=== PATIENT | male | born 1975 | race Two or more races ===

== ENCOUNTER 2017-04-03 22:17 | Emergency (ER) | payer SELFPAY ==
[~2017-04-03] VITALS: Ht 170.2 cm; Wt 70.3 kg
[~2017-04-03 22:17] MED LIST: AUGMENTIN 500-1 EACH PO; NORVIR100 MG PO; PREZISTA600 MG PO; TRUVADA1 TAB PO; VICODIN 5-5001 EACH PO
[2017-04-03] MEDS ORDERED: NKM (22:29)
[2017-04-03 22:30] VITALS: BP 139/85
[2017-04-03] MEDS ORDERED: Morphine Sulfate 4mg/ml Inj IVP ONE (23:15)
[2017-04-03 23:42] LABS: APPEARANCE,URINE CLEAR; KETONES,URINE NEGATIVE (NEGATIVE); LEUKOCYTE ESTERASE ,URINE NEGATIVE (NEGATIVE); NITRITE,URINE NEGATIVE (NEGATIVE); PH,URINE 7 (4.5-8.0); PROTEIN,URINE NEGATIVE (NEGATIVE); UROBILINOGEN,URINE NORMAL MG/DL (0.0-1.0)
[2017-04-03 23:45] LABS: BASOPHILS % (AUTO) 0.5 % (0.0-2.0); EOSINOPHILS % (AUTO) 0.6 % (0.0-3.0); MEAN CORPUSCULAR HEMOGLOBIN 33.9 PG (27.0-31.0); MEAN CORPUSCULAR HGB CONC 36.8 G/DL (32.0-36.0); MEAN CORPUSCULAR VOLUME 92 FL (80-99); MEAN PLATELET VOLUME 7.4 FL (6.5-10.1); MONOCYTES % (AUTO) 8.5 % (1.0-10.0); NEUTROPHILS % (AUTO) 65.3 % (45.0-75.0); PLATELET COUNT 173 K/UL (150-450); RED BLOOD COUNT 5.16 M/UL (4.70-6.10); RED CELL DISTRIBUTION WIDTH 10.8 % (11.6-14.8); WHITE BLOOD COUNT 9.2 K/UL (4.8-10.8)
--- NOTE | 2017-04-03 23:55 | Emergency Room Report ---
History of Present Illness General Chief Complaint: Abdominal Pain Source: Patient Present Illness HPI This is a 41-year-old male with a history of HIV. He is not taking any medication. He presents with chief complaint of dental pain is been ongoing for about a month. Seen a dentist and placed on antibiotics. Was told that nothing could be done since she is not taking his HIV medication. His pain is localized to the right upper wisdom tooth. No fever chills but no nausea no vomiting. His second complaint is abdominal pain. His been ongoing for last 2 days. Decreased appetite. Has nausea vomiting and diarrhea. Pain is 8/10. Allergies: Coded Allergies: ACETAMINOPHEN (Verified Allergy, Unknown, 04/03/17) HYDROMORPHONE HCL (Verified Allergy, Unknown, 04/03/17) Patient History Past Medical History: see triage record, old chart reviewed, HIV Past Surgical History: other Pertinent Family History: none Social History: Reports: drug use, Denies: smoking Immunizations: other Reviewed Nursing Documentation: PMH: Agreed, PSxH: Agreed Review of Systems Eye: Denies: eye pain, blurred vision ENT: Denies: ear pain, nose congestion, throat swelling Respiratory: Denies: cough, shortness of breath Cardiovascular: Denies: chest pain, palpitations Gastrointestinal: Reports: abdominal pain, Denies: diarrhea, nausea, vomiting Musculoskeletal: Denies: back pain, joint pain Skin: Denies: rash Neurological: Denies: headache, numbness Endocrine: Denies: increased thirst, increased urine Hematologic/Lymphatic: Denies: easy bruising All Other Systems: negative except mentioned in HPI Physical Exam Vital Signs Date Time Temp Pulse Resp B/P (MAP) Pulse Ox O2 Delivery O2 Flow Rate FiO2 04/03/17 22:24 100.0 102 20 139/85 98 Room Air vitals normal except for a low-grade fever Sp02 EP Interpretation: reviewed, normal General Appearance: well appearing, no apparent distress, alert Head: normocephalic, atraumatic Eyes: bilateral eye PERRL, bilateral eye EOMI ENT: hearing grossly normal, normal pharynx Neck: full range of motion, supple, no meningismus Respiratory: chest non-tender, lungs clear, normal breath sounds Cardiovascular #1: regular rate, rhythm, no murmur Gastrointestinal: normal bowel sounds, no mass, no organomegaly, no bruit, non- distended, tenderness - Mild, diffuse Musculoskeletal: back normal, gait/station normal, normal range of motion Psychiatric: mood/affect normal Skin: warm/dry Medical Decision Making Diagnostic Impression: Primary Impression: Abdominal pain of unknown etiology Additional Impressions: Pain, dental Nausea vomiting and diarrhea Methamphetamine abuse ER Course Patient presents with abdominal pain with nausea vomiting and diarrhea. Because of his HIV history and noncompliance with medication, will put him on antibiotics. No evidence of acute abdomen. He does have appendicolith but no evidence of acute appendicitis. Labs unremarkable. He has no pain in the right lower quadrant. We'll discharge home. Lab Results Impression labs unremarkable CT/MRI/US Diagnostic Results CT/MRI/US Diagnostic Results : Imaging Test Ordered: CT abdomen and pelvis Impression Read by radiologist. Appendix is normal in caliber. No inflammatory changes. Constipation. Last Vital Signs Date Time Temp Pulse Resp B/P (MAP) Pulse Ox O2 Delivery O2 Flow Rate FiO2 04/03/17 22:30 100.0 94 20 139/85 98 Room Air Status: improved Disposition: HOME, SELF-CARE Condition: Stable Scripts Hydrocodone/Acetaminophen 5-325* (HYDROCODONE/ACETAMINOPHEN 5-325*) 1 Each Tablet 1 TAB ORAL Q6H Y for For Pain, #15 TAB 0 Refills Prov: SARIAH LYN M.D. 04/04/17 Metronidazole* (FLAGYL*) 500 Mg Tablet 500 MG ORAL BID, #14 TAB Prov: SARIAH LYN M.D. 04/04/17 Ciprofloxacin Hcl* (CIPROFLOXACIN HCL*) 500 Mg Tablet 500 MG ORAL Q12H, #14 TAB 0 Refills Prov: SARIAH LYN M.D. 04/04/17 Patient Instructions: Abdominal Pain, Adult Additional Instructions: Followup with your DrLarry in 2-3 days. Return if symptom worsen. You need to be back on your HIV medications. SARIAH LYN M.D. Apr 03, 2017 23:55
[2017-04-04 00:15] LABS: ALANINE AMINOTRANSFERASE 49 U/L (12-78); ALBUMIN/GLOBULIN RATIO 0.6 (1.0-2.7); ANION GAP 7 mmol/L (5-15); ASPARTATE AMINO TRANSFERASE 37 U/L (15-37); CALCIUM 9.2 MG/DL (8.5-10.1); CARBON DIOXIDE 32 MMOL/L (21-32); CHLORIDE 100 MMOL/L (98-107); CREATININE 0.9 MG/DL (0.55-1.30); GLOMERULAR FILTRATION RATE > 60 mL/min (>60); LIPASE 114 U/L (73-393); POTASSIUM 4.4 MMOL/L (3.5-5.1); SODIUM 139 MMOL/L (136-145); TOTAL PROTEIN 9.4 G/DL (6.4-8.2)
[2017-04-04] MEDS ORDERED: METRONIDAZOLE500 MG ORAL (00:38)
[2017-04-04] MEDS ORDERED: HYDROCODON-ACE1 EA15 ORAL (00:38)
[2017-04-04] MEDS ORDERED: CIPROFLOXACIN500 M2 ORAL (00:38)
[2017-04-04 00:39] VITALS: BP 123/86
[2017-04-04 00:49] VITALS: BP 123/86
--- NOTE | 2017-04-04 09:23 | Diagnostic Imaging Report ---
Indication: Abdominal pain, vomiting Technique: Spiral acquisitions obtained through the abdomen and pelvis. No oral contrast utilized, per emergency room physician request No IV contrast utilized, per referring physician request.. Multiplanar reconstructions were generated. Total dose length product 624 mGycm. CTDIvol(s) 12 mGy. Dose reduction achieved using automated exposure control Comparison: None Findings: The appendix is normal. Considerable stool is seen throughout the colon. No evidence of diverticulosis or diverticulitis. No small bowel distention. There is some fecalized material in the distal small bowel. No free or loculated intraperitoneal air or fluid. Distal esophagus, stomach, duodenum are unremarkable. Lack of IV contrast limits assessment of the solid organs. The liver, gallbladder, bile ducts, pancreas, spleen, adrenals, kidneys are unremarkable. No retroperitoneal or mesenteric mass or adenopathy. No pelvic mass or adenopathy. The included lung bases are clear. The bones are unremarkable. Impression: Considerable retained old material, correlate with any clinical history of constipation Fecalized bowel transit material and prominent distal ileal loops consistent with slow delayed No acute process otherwise This agrees with the preliminary interpretation provided overnight by [facility] teleradiology service. The CT scanner at [facility] is accredited by the [employer] and the scans are performed using protocols designed to limit radiation exposure to as low as reasonably achievable to attain images of sufficient resolution adequate for diagnostic evaluation.
== END 2017-04-04 00:49 | disposition home or self-care (01) ==
LOC: EMR 23:20
DX: R10.9 Unspecified abdominal pain (principal); R11.2 Nausea with vomiting, unspecified; R19.7 Diarrhea, unspecified; K08.89 Other specified disorders of teeth and supporting structures; F15.10 Other stimulant abuse, uncomplicated
CPT/HCPCS: 36415; 74176; 80053; 81003; 83690; 85025; 96374; 96375; 99284; J2270; J2405

== ENCOUNTER 2018-07-30 00:56 | Emergency (ER) | payer SELFPAY ==
[~2018-07-30] VITALS: Ht 172.7 cm; Wt 74.8 kg
[~2018-07-30 00:56] MED LIST changes: +CIPROFLOXACIN500 M2 ORAL; +HYDROCODON-ACE1 EA15 ORAL; +METRONIDAZOLE500 MG ORAL; +NKM
[2018-07-30] MEDS ORDERED: Metoclopramide 10mg/2ml Inj IVP ONE (01:15)
[2018-07-30] MEDS ORDERED: Dicyclomine HCl 10mg/5ml oral soln ORAL ONE (01:15)
[2018-07-30] MEDS ORDERED: Mylanta II UD 30ml ORAL ONE (01:15)
[2018-07-30] MEDS ORDERED: Lidocaine 2% Visc 15ml soln ORAL ONE (01:15)
[2018-07-30] MEDS ORDERED: DiphenhydrAMINE 50mg/ml Inj IVP ONE (01:15)
[2018-07-30 01:20] VITALS: BP 125/86
--- NOTE | 2018-07-30 01:20 | NUR ---
ED Nurse Note: pt walked in c/o RLQ abd pain and n/v x 3days, pt denies diarrhea, pt AA&ox4, gcs=15, skin warm and dry, resp even and unlabored on RA, no active n/v at this time, abd soft nontender nondistended, active BS, VSS, will cont monitor. Last BM today, normal. Denies urination problem.
[2018-07-30 02:08] LABS: BASOPHILS % (AUTO) 0.9 % (0.0-2.0); EOSINOPHILS % (AUTO) 2.2 % (0.0-3.0); HEMOGLOBIN 16.2 G/DL (14.2-18.0); LYMPHOCYTES % (AUTO) 29.5 % (20.0-45.0); MEAN CORPUSCULAR VOLUME 91 FL (80-99); MONOCYTES % (AUTO) 13.6 % (1.0-10.0); NEUTROPHILS % (AUTO) 53.8 % (45.0-75.0); PLATELET COUNT 196 K/UL (150-450); RED BLOOD COUNT 4.86 M/UL (4.70-6.10); RED CELL DISTRIBUTION WIDTH 10.5 % (11.6-14.8); WHITE BLOOD COUNT 5.3 K/UL (4.8-10.8)
[2018-07-30 02:18] LABS: ANION GAP 7 mmol/L (5-15); BLOOD UREA NITROGEN 15 mg/dL (7-18); CALCIUM 8.3 MG/DL (8.5-10.1); CARBON DIOXIDE 27 MMOL/L (21-32); CHLORIDE 105 MMOL/L (98-107); CREATININE 0.9 MG/DL (0.55-1.30); POTASSIUM 3.7 MMOL/L (3.5-5.1); SODIUM 139 MMOL/L (136-145)
[2018-07-30 02:22] LABS: ALANINE AMINOTRANSFERASE 38 U/L (12-78); ALBUMIN 3.7 G/DL (3.4-5.0); ALBUMIN/GLOBULIN RATIO 0.9 (1.0-2.7); ALKALINE PHOSPHATASE 126 U/L (46-116); ASPARTATE AMINO TRANSFERASE 28 U/L (15-37); BILIRUBIN,TOTAL 0.4 MG/DL (0.2-1.0)
[2018-07-30] MEDS ORDERED: RANITIDINE HCL150 MG ORAL (02:37)
[2018-07-30] MEDS ORDERED: ONDANSETRON ODT4 MG BC (02:37)
[2018-07-30 02:51] VITALS: BP 128/67
--- NOTE | 2018-07-30 02:52 | NUR ---
ED Nurse Note: pt is cleared to be d/c per ERMD, pt discharge/aftercare instruction provided w/ prescription, pt education done via discussion and hand out, iv d/c and dressing applied, wristband removed, pt advised to follow up with pcp or return to ed if sx worsen or new sx develop, pt vss, airway intact, resp even and unlabored on RA, -n/v/d, pt reports pain relief and states he feels better, nutrition guide provided, pt verbalized understanding and agrees with plan, all belongings left w/ pt.
--- NOTE | 2018-07-30 04:12 | Emergency Room Report ---
History of Present Illness General Chief Complaint: Abdominal Pain Source: Patient Present Illness HPI 43-year-old M presents to ED for evaluation. Patient complaining of abdominal pain with nausea and vomiting 3 days. Pain is sharp, periumbilical, 6 out of 10, nonradiating. Also noting headache. Frontal. Throbbing. Denies photophobia or blurry vision. Denies neck stiffness. Denies fevers or chills. Denies diarrhea. Notes history of HIV; states he just started his medications recently. Was noncompliant for some time. No other aggravating relieving. Denies any other associated symptoms Allergies: Coded Allergies: ACETAMINOPHEN (Verified Allergy, Unknown, 04/03/17) HYDROMORPHONE HCL (Verified Allergy, Unknown, 04/03/17) Patient History Past Medical History: HIV Past Surgical History: none Pertinent Family History: none Social History: Denies: smoking, alcohol use, drug use Immunizations: UTD Reviewed Nursing Documentation: PMH: Agreed; PSxH: Agreed Review of Systems All Other Systems: negative except mentioned in HPI Physical Exam Vital Signs Date Time Temp Pulse Resp B/P (MAP) Pulse Ox O2 Delivery O2 Flow Rate FiO2 07/30/18 00:59 98.2 100 14 131/90 99 Room Air Sp02 EP Interpretation: reviewed, normal General Appearance: no apparent distress, alert, GCS 15, non-toxic Head: normocephalic, atraumatic Eyes: bilateral eye normal inspection, bilateral eye PERRL, bilateral eye EOMI ENT: hearing grossly normal, normal pharynx, no angioedema, normal voice Neck: full range of motion, supple, no meningismus, supple/symm/no masses Respiratory: chest non-tender, lungs clear, normal breath sounds, speaking full sentences Cardiovascular #1: regular rate, rhythm, no edema Cardiovascular #2: 2+ carotid (R), 2+ carotid (L), 2+ radial (R), 2+ radial (L) , 2+ dorsalis pedis (R), 2+ dorsalis pedis (L) Gastrointestinal: normal bowel sounds, non tender, soft, non-distended, no guarding, no rebound Rectal: deferred Genitourinary: normal inspection, no CVA tenderness Musculoskeletal: back normal, gait/station normal, normal range of motion, non- tender Neurologic: alert, oriented x3, responsive, motor strength/tone normal, sensory intact, speech normal Psychiatric: judgement/insight normal, memory normal, mood/affect normal, no suicidal/homicidal ideation Reflexes: 3+ bicep (R), 3+ bicep (L), 3+ tricep (R), 3+ tricep (L), 3+ knee (R) , 3+ knee (L) Skin: normal color, no rash, warm/dry, well hydrated Lymphatic: no adenopathy Medical Decision Making Diagnostic Impression: Primary Impression: Abdominal pain Qualified Codes: R10.33 - Periumbilical pain ER Course Hospital Course 43-year-old M presents to ED with abdominal pain with N/V, headache differential diagnosis: gastritis, SBO, cholecystits Clinical course Patient placed on stretcher. On bus driver/monitor. After initial history and physical I ordered labs, IV fluids, reglan, pepcid, benedryl Labs - no leukocytosis, no electrolyte abnormalities, LFTs normal On reassessment patient feels better. Consideration for gastritis. Patient is afebrile, nontoxic-appearing. No nuchal rigidity. I believe patient be safely discharged to home at this time. We'll provide PMD referrals I feel this is a highly complex case requiring extensive working including EKG/ Rhythm strip, Xray/CT/US, Blood/urine lab work, repeat exams while in ED, and administration of strong opiates/narcotics for pain control, admission to hospital or close patient follow up. Diagnosis - abdominal pain Stable and discharged to home with prescriptions for zantac, zofran. Followup with PMD. Return to ED if symptoms recur or worsen Labs Test 07/30/18 01:40 White Blood Count 5.3 K/UL (4.8-10.8) Red Blood Count 4.86 M/UL (4.70-6.10) Hemoglobin 16.2 G/DL (14.2-18.0) Hematocrit 44.0 % (42.0-52.0) Mean Corpuscular Volume 91 FL (80-99) Mean Corpuscular Hemoglobin 33.4 PG (27.0-31.0) Mean Corpuscular Hemoglobin Concent 36.8 G/DL (32.0-36.0) Red Cell Distribution Width 10.5 % (11.6-14.8) Platelet Count 196 K/UL (150-450) Mean Platelet Volume 7.3 FL (6.5-10.1) Neutrophils (%) (Auto) 53.8 % (45.0-75.0) Lymphocytes (%) (Auto) 29.5 % (20.0-45.0) Monocytes (%) (Auto) 13.6 % (1.0-10.0) Eosinophils (%) (Auto) 2.2 % (0.0-3.0) Basophils (%) (Auto) 0.9 % (0.0-2.0) Sodium Level 139 MMOL/L (136-145) Potassium Level 3.7 MMOL/L (3.5-5.1) Chloride Level 105 MMOL/L (98-107) Carbon Dioxide Level 27 MMOL/L (21-32) Anion Gap 7 mmol/L (5-15) Blood Urea Nitrogen 15 mg/dL (7-18) Creatinine 0.9 MG/DL (0.55-1.30) Estimat Glomerular Filtration Rate > 60 mL/min (>60) Glucose Level 108 MG/DL (74-106) Calcium Level 8.3 MG/DL (8.5-10.1) Total Bilirubin 0.4 MG/DL (0.2-1.0) Aspartate Amino Transf (AST/SGOT) 28 U/L (15-37) Alanine Aminotransferase (ALT/SGPT) 38 U/L (12-78) Alkaline Phosphatase 126 U/L (46-116) Total Protein 7.8 G/DL (6.4-8.2) Albumin 3.7 G/DL (3.4-5.0) Globulin 4.1 g/dL Albumin/Globulin Ratio 0.9 (1.0-2.7) Lipase 106 U/L (73-393) Last Vital Signs Date Time Temp Pulse Resp B/P (MAP) Pulse Ox O2 Delivery O2 Flow Rate FiO2 07/30/18 02:51 98.2 87 16 128/67 99 Room Air Status: improved Disposition: HOME, SELF-CARE Condition: Stable Scripts Ondansetron Odt* (ZOFRAN ODT*) 4 Mg Tab.rapdis 4 MG BC EVERY 8 HOURS, #10 TAB 0 Refills Prov: Chon Jensen MD 07/30/18 Ranitidine Hcl* (ZANTAC*) 150 Mg Tablet 150 MG ORAL TWICE A DAY, #30 TAB Prov: Chon Jensen MD 07/30/18 Referrals: [facility] Bernardino Garcia. [facility] Patient Instructions: Gastritis, Adult, [id number] Chon Jensen MD Jul 30, 2018 04:12
== END 2018-07-30 02:54 | disposition home or self-care (01) ==
LOC: EMR 01:19
DX: R10.33 Periumbilical pain (principal); R11.2 Nausea with vomiting, unspecified; R51 Headache; Z88.6 Allergy status to analgesic agent; Z88.5 Allergy status to narcotic agent
CPT/HCPCS: 36415; 80053; 83690; 85025; 96361; 96374; 96375; 99284; J1200; J2765; S0028